=== PATIENT | female | born 1990 | race Two or more races ===

== ENCOUNTER 2021-12-19 08:30 | Inpatient (IN) | payer OTHER ==
[~2021-12-19] VITALS: Ht 172.7 cm; Wt 120.2 kg
[2021-12-19] MEDS ORDERED: COZAAR25 MG PO (10:38)
[2021-12-19] MEDS ORDERED: BUDESONIDE PO (10:39)
[2021-12-19] MEDS ORDERED: ZYRTEC10 M3 PO (10:39)
[2021-12-21] MEDS ORDERED: UCERIS9 MG (08:17)
== END 2021-12-23 10:14 | disposition home or self-care (01) | DRG 743 ==
LOC: O/R 12-21 05:23 → OB/GYN 12-21 05:23
PROVIDERS: ADMIT Obstetrics & Gynecology; ATTEND Obstetrics & Gynecology
PROC: 0UB00ZZ Excision of Right Ovary, Open Approach (ICD-10-PCS; 2021-12-21)
PROC: 0DNW0ZZ Release Peritoneum, Open Approach (ICD-10-PCS; 2021-12-21)
PROC: 0UB90ZZ Excision of Uterus, Open Approach (ICD-10-PCS; principal; 2021-12-21 07:00)
DX: N80.0 Endometriosis of uterus (principal); N83.11 Corpus luteum cyst of right ovary; Z20.822 Contact with and (suspected) exposure to COVID-19; N73.6 Female pelvic peritoneal adhesions (postinfective)

== ENCOUNTER 2023-07-30 09:12 | Outpatient (CLI) | payer OTHER ==
[~2023-07-30 09:12] MED LIST: BUDESONIDE PO; COZAAR25 MG PO; UCERIS9 MG; ZYRTEC10 M3 PO
== END 2023-07-30 09:13 | disposition home or self-care (01) ==
LOC: PRENATAL 09:12
PROVIDERS: ATTEND Obstetrics & Gynecology Maternal & Fetal Medicine
DX: O36.80X0 Pregnancy with inconclusive fetal viability, not applicable or unspecified (principal); Z36.9 Encounter for antenatal screening, unspecified; Z36.82 Encounter for antenatal screening for nuchal translucency; Z14.8 Genetic carrier of other disease; O10.019 Pre-existing essential hypertension complicating pregnancy, unspecified trimester; O99.210 Obesity complicating pregnancy, unspecified trimester; Z3A.12 12 weeks gestation of pregnancy

== ENCOUNTER 2023-09-27 12:47 | Outpatient (CLI) | payer OTHER | END 2023-09-27 12:52 | disposition home or self-care (01) | LOC: PRENATAL 12:47 | PROVIDERS: ATTEND Obstetrics & Gynecology Maternal & Fetal Medicine | DX: O35.9XX0 Maternal care for (suspected) fetal abnormality and damage, unspecified, not applicable or unspecified (principal); O35.3XX0 Maternal care for (suspected) damage to fetus from viral disease in mother, not applicable or unspecified; O44.00 Complete placenta previa NOS or without hemorrhage, unspecified trimester; O10.019 Pre-existing essential hypertension complicating pregnancy, unspecified trimester; O99.210 Obesity complicating pregnancy, unspecified trimester; Z3A.20 20 weeks gestation of pregnancy ==

== ENCOUNTER → 2023-11-13 10:36 | Outpatient (CLI) | payer OTHER | END | disposition home or self-care (01) | LOC: PRENATAL 10:36 | PROVIDERS: ATTEND Obstetrics & Gynecology Maternal & Fetal Medicine | DX: O26.849 Uterine size-date discrepancy, unspecified trimester (principal); O10.019 Pre-existing essential hypertension complicating pregnancy, unspecified trimester; O99.210 Obesity complicating pregnancy, unspecified trimester; Z3A.27 27 weeks gestation of pregnancy ==

== ENCOUNTER → 2023-12-18 10:00 | Outpatient (CLI) | payer OTHER | END | disposition home or self-care (01) | LOC: PRENATAL 10:00 | PROVIDERS: ATTEND Obstetrics & Gynecology Maternal & Fetal Medicine | DX: O26.849 Uterine size-date discrepancy, unspecified trimester (principal); O36.8199 Decreased fetal movements, unspecified trimester, other fetus; O99.210 Obesity complicating pregnancy, unspecified trimester; Z3A.32 32 weeks gestation of pregnancy ==